=== PATIENT | male | born 1930 | race Caucasian/White ===

== ENCOUNTER → 2017-02-03 | Outpatient (CLI) | payer MEDICARE ==
[~2017-02-03] MED LIST: ATOR20TA PO; FINA5TAB4 PO; HYDR25TA6 PO; METO50TA82 PO; REGADENOSON 0.4 MG/5 ML SYRINGE ONE; WARF7.5T PO
== END | disposition home or self-care (01) ==
LOC: CFH 07:41
PROVIDERS: ATTEND Internal Medicine Cardiovascular Disease
DX: I10 Essential (primary) hypertension (principal); R01.1 Cardiac murmur, unspecified; R07.9 Chest pain, unspecified
CPT/HCPCS: 78452; 93017; 93306; A9502; J2785

== ENCOUNTER → 2018-01-28 | Outpatient (CLI) | payer MEDICARE ==
[~2018-01-28] MED LIST changes: -REGADENOSON 0.4 MG/5 ML SYRINGE ONE
== END | disposition home or self-care (01) ==
LOC: CFH 08:07
PROVIDERS: ATTEND Internal Medicine Cardiovascular Disease
DX: I25.10 Atherosclerotic heart disease of native coronary artery without angina pectoris (principal); I10 Essential (primary) hypertension; R00.1 Bradycardia, unspecified
CPT/HCPCS: 78452; 93017; A9502

== ENCOUNTER 2019-02-14 07:59 | Outpatient (CLI) | payer MEDICARE | END 2019-02-14 23:59 | disposition home or self-care (01) | LOC: WOUND 07:59 | PROVIDERS: ATTEND Internal Medicine Infectious Disease | DX: L97.212 Non-pressure chronic ulcer of right calf with fat layer exposed (principal); C91.11 Chronic lymphocytic leukemia of B-cell type in remission; E21.3 Hyperparathyroidism, unspecified; I82.5Z1 Chronic embolism and thrombosis of unspecified deep veins of right distal lower extremity; E78.5 Hyperlipidemia, unspecified; I25.10 Atherosclerotic heart disease of native coronary artery without angina pectoris; Z87.891 Personal history of nicotine dependence; Z90.49 Acquired absence of other specified parts of digestive tract | CPT/HCPCS: 87070; 87205; G0463 ==

== ENCOUNTER 2019-02-21 09:06 | Outpatient (CLI) | payer MEDICARE | END 2019-02-21 23:59 | disposition home or self-care (01) | LOC: WOUND 09:06 | PROVIDERS: ATTEND Nurse Practitioner Family | DX: L97.212 Non-pressure chronic ulcer of right calf with fat layer exposed (principal); L03.115 Cellulitis of right lower limb; R60.0 Localized edema; E21.3 Hyperparathyroidism, unspecified; I12.9 Hypertensive chronic kidney disease with stage 1 through stage 4 chronic kidney disease, or unspecified chronic kidney disease; N18.9 Chronic kidney disease, unspecified; I82.5Z1 Chronic embolism and thrombosis of unspecified deep veins of right distal lower extremity; E78.5 Hyperlipidemia, unspecified; I25.10 Atherosclerotic heart disease of native coronary artery without angina pectoris; Z87.891 Personal history of nicotine dependence; Z90.49 Acquired absence of other specified parts of digestive tract | CPT/HCPCS: 97597 ==

== ENCOUNTER 2019-02-28 08:49 | Outpatient (CLI) | payer MEDICARE | END 2019-02-28 23:59 | disposition home or self-care (01) | LOC: WOUND 08:49 | PROVIDERS: ATTEND Nurse Practitioner Family | DX: L97.212 Non-pressure chronic ulcer of right calf with fat layer exposed (principal); R60.0 Localized edema; E21.3 Hyperparathyroidism, unspecified; I12.9 Hypertensive chronic kidney disease with stage 1 through stage 4 chronic kidney disease, or unspecified chronic kidney disease; N18.9 Chronic kidney disease, unspecified; E78.5 Hyperlipidemia, unspecified; I25.10 Atherosclerotic heart disease of native coronary artery without angina pectoris; Z87.891 Personal history of nicotine dependence; Z90.49 Acquired absence of other specified parts of digestive tract | CPT/HCPCS: G0463 ==

== ENCOUNTER 2019-04-25 06:47 | Inpatient (IN) | payer MEDICARE ==
[~2019-04-25] VITALS: Ht 190.5 cm; Wt 95.5 kg
--- NOTE | 2019-04-25 07:09 | NUR ---
PT HERE TODAY FOR RLQ PAIN THAT STARTED LAST WEEK AND GOT WORSE LAST NIGHT AND THIS MORNING. DENIES N/V. DENIES SOB. DENIES CP. STATES HE WAS CONSTIPATED EARLIER THIS WEEK AND TOOK METAMUCIL AND FIXED THAT PROBLEM. PT STATES PAIN IS CURRENTLY 08/21. NADCeline. QUITAS. SPOUSE AT BEDSIDE. AMBULATED TO BATHROOM WITH STEADY GAIT TO PROVIDE URINE SAMPLE.
[2019-04-25] MEDS ORDERED: LATA2.5D3 EACHEYE (07:12)
--- NOTE | 2019-04-25 07:19 | NUR ---
PT NOW RESTING ON GURFARNAZ. NADN. VSS. PROVIDED WITH A WARM BLANKET. PA AT BEDSIDE ASSESSING PT NOW.
--- NOTE | 2019-04-25 07:50 | NUR ---
PIV STARTED. BLOOD DRAWN. PT RESTING ON GURNEY. PROVIDED WITH ANOTHER BLANKET. DENIES FURTHER NEEDS. NADN. JOYCE.
[2019-04-25 07:51] LABS: MICROSCOPIC INDICATED
[2019-04-25 07:58] LABS: CULTURE INDICATED? NO
[2019-04-25 08:06] LABS: ALBUMIN 3.6 g/dL (3.4-5.0); ANION GAP 7 mmol/L (5-15); CALCIUM 8.5 mg/dL (8.5-10.1); CHLORIDE 108 mmol/L (98-107)
[2019-04-25 08:12] LABS: INTERNATIONAL NORMALIZED RATIO 2.81 (0.93-1.1); PROTHROMBIN TIME 28.4 Seconds (9.6-11.5)
[2019-04-25 08:16] LABS: ALANINE AMINOTRANSFERASE 21 U/L (12-78); ALKALINE PHOSPHATASE 70 U/L (45-117); BILIRUBIN,TOTAL 1.5 mg/dL (0.2-1.0); CREATININE 2.81 mg/dL (0.7-1.3); TOTAL PROTEIN 6.9 g/dL (6.4-8.2)
[2019-04-25 08:31] LABS: BASOPHILS # (AUTO) 0.04 x10^3/uL (0-0.1); BASOPHILS % (AUTO) 1 % (0-1); EOSINOPHILS # (AUTO) 0.45 x10^3/uL (0-0.4); EOSINOPHILS % (AUTO) 7 % (1-7); LYMPHOCYTES # (AUTO) 2.88 x10^3/uL (1-3.4); LYMPHOCYTES % (AUTO) 46 % (22-44); MD SCAN; MEAN CORPUSCULAR HEMOGLOBIN 33.9 pg (27.5-34.5); MEAN CORPUSCULAR HGB CONC 34.2 g/dL (33.2-36.2); MEAN CORPUSCULAR VOLUME 99.1 fL (81-97); MEAN PLATELET VOLUME 9.7 fL (7.4-10.4); MONOCYTES # (AUTO) 0.22 x10^3/uL (0.2-0.8); MONOCYTES % (AUTO) 4 % (2-9); NEUTROPHILS % (AUTO) 43 % (42-75); PLATELET COUNT 67 x10^3/uL (130-400); RED BLOOD COUNT 4.15 x10^6/uL (4.38-5.82); RED CELL DISTRIBUTION WIDTH 13.7 % (9.4-14.8)
--- NOTE | 2019-04-25 08:43 | NUR ---
PT TO CT NOW.
--- NOTE | 2019-04-25 08:57 | NUR ---
TASK RN: PT BACK FROM CT. RESTING ON SALVADOR. NADN. JOYCE.
--- NOTE | 2019-04-25 09:19 | NUR ---
AT BEDSIDE ASSESSING PT NOW. PT RESTING ON GURNEY. NADN. JOYCE.
--- NOTE | 2019-04-25 09:57 | NUR ---
PT RESTING ON SALVADOR. NIGEL. VSS. DENIES NEEDS.
--- NOTE | 2019-04-25 10:07 | NUR ---
DR. WICK AT BEDSIDE ASSESSING PT NOW.
--- NOTE | 2019-04-25 10:21 | NUR ---
PT BLADDER SCANNED PER MD ORDER NOW. 67ML IN BLADDER. PT RESTING ON GURNEY. NADN. VSS. DENIES NEEDS. AWARE OF POC RE: ADMISSION.
--- NOTE | 2019-04-25 10:43 | NUR ---
PT PROVIDED WITH FOOD AND WATER AT THIS TIME. RESTING ON GURNEY. NADN. VSS. DENIES FURTHER NEEDS.
[2019-04-25] MEDS ORDERED: SODIUM CHLORIDE FLUSH 10ML SYR IVF PRN (11:00)
--- NOTE | 2019-04-25 11:23 | NUR ---
REPORT GIVEN TO FIGUEROA HARRIS.
[2019-04-25 12:00] VITALS: BP 143/88
[2019-04-25] MEDS ORDERED: LABETALOL 5 MG/ML SYR. (IV ONLY) IVPush PRN (14:00)
[2019-04-25] MEDS ORDERED: ONDANSETRON ODT 4 MG PO PRN (14:00)
[2019-04-25] MEDS: SODIUM CHLORIDE 0.9% 1,000 ML IV SCH (15:44)
[2019-04-25] MEDS ORDERED: WARFARIN 5 MG TABLET PO-COUM ONE (18:00)
[2019-04-25 19:50] VITALS: BP 134/85
[2019-04-25] MEDS: ATORVASTATIN 20 MG TABLET PO SCH (20:30)
[2019-04-25] MEDS: LATANOPROST OPHTH 0.005%, 2.5ML EACHEYE SCH (20:31)
[2019-04-26 01:25] VITALS: BP 114/76
[2019-04-26] MEDS: SODIUM CHLORIDE 0.9% 1,000 ML IV SCH ×3 (01:28→20:31)
[2019-04-26 05:05] LABS: INTERNATIONAL NORMALIZED RATIO 2.49 (0.93-1.1); PROTHROMBIN TIME 25.2 Seconds (9.6-11.5)
[2019-04-26 05:09] LABS: ALBUMIN 3.1 g/dL (3.4-5.0); ANION GAP 6 mmol/L (5-15); CHLORIDE 112 mmol/L (98-107)
[2019-04-26 05:13] LABS: ALANINE AMINOTRANSFERASE 17 U/L (12-78); ALKALINE PHOSPHATASE 62 U/L (45-117); BILIRUBIN,TOTAL 1.7 mg/dL (0.2-1.0); CREATININE 2.58 mg/dL (0.7-1.3); TOTAL PROTEIN 5.9 g/dL (6.4-8.2)
[2019-04-26 05:15] LABS: MEAN CORPUSCULAR HEMOGLOBIN 33.3 pg (27.5-34.5); MEAN CORPUSCULAR HGB CONC 33.5 g/dL (33.2-36.2); MEAN CORPUSCULAR VOLUME 99.3 fL (81-97); RED BLOOD COUNT 3.84 x10^6/uL (4.38-5.82); RED CELL DISTRIBUTION WIDTH 13.2 % (9.4-14.8)
[2019-04-26 05:22] LABS: HEMOGLOBIN A1C 5.8 % (4.2-6.3)
[2019-04-26 05:47] LABS: MD YES
[2019-04-26 06:09] LABS: MEAN PLATELET VOLUME 9.7 fL (7.4-10.4); PLATELET COUNT 64 x10^3/uL (130-400)
[2019-04-26 06:10] LABS: EOS#(MANUAL) 0.34 x10^3/uL (0.0-0.4); EOS% (MANUAL) 6 % (1-7); LYMPH#(MANUAL) 2.69 x10^3/uL (1-3.4); LYMPHS% (MANUAL) 48 % (22-44); MONOS#(MANUAL) 0.28 x10^3/uL (0.3-2.7); MONOS% (MANUAL) 5 % (2-9); SEGS% (MANUAL) 41 % (42-75)
[2019-04-26 06:11] LABS: <PLATELET ESTIMATE> DECREASED; <PLT MORPHOLOGY> NORMAL PLT MORPH; <RBC MORPHOLOGY> NORMAL; SMUDGE CELLS 1+
[2019-04-26 07:42] VITALS: BP 117/77
[2019-04-26] MEDS: FINASTERIDE 5 MG TABLET PO SCH (08:45)
[2019-04-26] MEDS: METOPROLOL TARTRATE 50 MG TABLET PO SCH (08:46)
[2019-04-26 14:35] VITALS: BP 124/74
[2019-04-26] MEDS ORDERED: WARFARIN 5 MG TABLET PO-COUM ONE (18:00)
[2019-04-26 19:29] VITALS: BP 132/73
[2019-04-26] MEDS: ATORVASTATIN 20 MG TABLET PO SCH (20:26)
[2019-04-26] MEDS: LATANOPROST OPHTH 0.005%, 2.5ML EACHEYE SCH (20:26)
[2019-04-27 00:50] VITALS: BP 125/68
[2019-04-27 05:23] LABS: INTERNATIONAL NORMALIZED RATIO 2.69 (0.93-1.1); PROTHROMBIN TIME 27.2 Seconds (9.6-11.5)
[2019-04-27 05:32] LABS: ALBUMIN 2.9 g/dL (3.4-5.0); ANION GAP 8 mmol/L (5-15); CALCIUM 7.7 mg/dL (8.5-10.1); CHLORIDE 115 mmol/L (98-107)
[2019-04-27 05:35] LABS: ALANINE AMINOTRANSFERASE 14 U/L (12-78); ALKALINE PHOSPHATASE 56 U/L (45-117); CREATININE 2.76 mg/dL (0.7-1.3); TOTAL PROTEIN 5.7 g/dL (6.4-8.2)
[2019-04-27] MEDS: SODIUM CHLORIDE 0.9% 1,000 ML IV SCH ×2 (06:17→17:34)
[2019-04-27 08:29] VITALS: BP 122/70
[2019-04-27] MEDS: FINASTERIDE 5 MG TABLET PO SCH (10:06)
[2019-04-27] MEDS: METOPROLOL TARTRATE 50 MG TABLET PO SCH (10:06)
[2019-04-27] MEDS: TAMSULOSIN 0.4 MG CAP.ER.24H PO SCH (11:59)
[2019-04-27 14:38] VITALS: BP 128/72
[2019-04-27] MEDS ORDERED: WARFARIN 5 MG TABLET PO-COUM SCH (18:00)
[2019-04-27 19:33] VITALS: BP 109/71
[2019-04-27] MEDS: ATORVASTATIN 20 MG TABLET PO SCH (20:01)
[2019-04-27] MEDS: LATANOPROST OPHTH 0.005%, 2.5ML EACHEYE SCH (20:01)
[2019-04-28 02:07] VITALS: BP 121/68
[2019-04-28] MEDS: SODIUM CHLORIDE 0.9% 1,000 ML IV SCH (03:32)
[2019-04-28 05:58] LABS: MEAN CORPUSCULAR HEMOGLOBIN 33.5 pg (27.5-34.5); MEAN CORPUSCULAR HGB CONC 33.4 g/dL (33.2-36.2); MEAN CORPUSCULAR VOLUME 100.4 fL (81-97); RED BLOOD COUNT 3.58 x10^6/uL (4.38-5.82); RED CELL DISTRIBUTION WIDTH 13.8 % (9.4-14.8)
[2019-04-28 06:01] LABS: INTERNATIONAL NORMALIZED RATIO 2.47 (0.93-1.1)
[2019-04-28 06:07] LABS: ANION GAP 8 mmol/L (5-15); CALCIUM 7.6 mg/dL (8.5-10.1); CHLORIDE 118 mmol/L (98-107); CREATININE 2.34 mg/dL (0.7-1.3)
[2019-04-28 06:16] LABS: BASOPHILS # (AUTO) 0.02 x10^3/uL (0-0.1); BASOPHILS % (AUTO) 0 % (0-1); EOSINOPHILS % (AUTO) 6 % (1-7); LYMPHOCYTES # (AUTO) 2.26 x10^3/uL (1-3.4); LYMPHOCYTES % (AUTO) 46 % (22-44); MD SCAN; MEAN PLATELET VOLUME 9.4 fL (7.4-10.4); MONOCYTES # (AUTO) 0.18 x10^3/uL (0.2-0.8); MONOCYTES % (AUTO) 4 % (2-9); NEUTROPHILS # (AUTO) 2.15 x10^3/uL (1.8-6.8); NEUTROPHILS % (AUTO) 44 % (42-75); PLATELET COUNT 51 x10^3/uL (130-400)
[2019-04-28 07:18] VITALS: BP 136/79
[2019-04-28] MEDS: FINASTERIDE 5 MG TABLET PO SCH (08:59)
[2019-04-28] MEDS: TAMSULOSIN 0.4 MG CAP.ER.24H PO SCH (09:00)
[2019-04-28] MEDS: METOPROLOL TARTRATE 50 MG TABLET PO SCH (09:00)
[2019-04-28 12:50] VITALS: BP 133/82
[2019-04-28] MEDS ORDERED: FLU VACC QS2019-20 36MOS UP/PF 0.5 ML IM-VACC ONE (15:00)
[2019-04-28] MEDS ORDERED: WARFARIN 5 MG TABLET PO-COUM SCH (18:00)
== END 2019-04-28 15:18 | disposition home or self-care (01) | DRG 300 ==
LOC: ED 08:02 → EDIP 10:35 → 3N 11:42 → DCLOUNGE 04-28 15:12
PROVIDERS: ADMIT Internal Medicine; ATTEND Internal Medicine
PROC: 0T9B70Z Drainage of Bladder with Drainage Device, Via Natural or Artificial Opening (ICD-10-PCS; principal; 2019-04-25)
DX: I82.890 Acute embolism and thrombosis of other specified veins (principal); K76.6 Portal hypertension; K86.9 Disease of pancreas, unspecified; I12.9 Hypertensive chronic kidney disease with stage 1 through stage 4 chronic kidney disease, or unspecified chronic kidney disease; N18.3 Chronic kidney disease, stage 3 (moderate); D69.6 Thrombocytopenia, unspecified; E78.00 Pure hypercholesterolemia, unspecified; K59.00 Constipation, unspecified; N40.0 Benign prostatic hyperplasia without lower urinary tract symptoms; R79.1 Abnormal coagulation profile; T50.905A Adverse effect of unspecified drugs, medicaments and biological substances, initial encounter; Y92.89 Other specified places as the place of occurrence of the external cause; Z79.01 Long term (current) use of anticoagulants; Z85.6 Personal history of leukemia; Z87.891 Personal history of nicotine dependence; Z90.49 Acquired absence of other specified parts of digestive tract; Z86.718 Personal history of other venous thrombosis and embolism; I86.8 Varicose veins of other specified sites
CPT/HCPCS: 36415; 74176; 80048; 80053; 81001; 83036; 83690; 85025; 85610; 85730; 86301; 99285; G0378; J7030

== ENCOUNTER 2019-05-18 09:03 | Outpatient (CLI) | payer MEDICARE ==
[~2019-05-18 09:03] MED LIST changes: +LATA2.5D3 EACHEYE
[2019-05-18] MEDS ORDERED: METO25TA35 PO (09:30)
== END 2019-05-18 23:59 | disposition home or self-care (01) ==
LOC: STAR 09:03
PROVIDERS: ATTEND Internal Medicine
DX: Z01.818 Encounter for other preprocedural examination (principal); K86.89 Other specified diseases of pancreas; I44.7 Left bundle-branch block, unspecified
CPT/HCPCS: 93005

== ENCOUNTER 2019-05-23 10:29 | Inpatient (IN) | payer MEDICARE ==
[~2019-05-23] VITALS: Ht 190.5 cm; Wt 97.0 kg
[~2019-05-23 10:29] MED LIST changes: +METO25TA35 PO
[2019-05-23] MEDS ORDERED: SODIUM CHLORIDE 0.9% 1,000 ML IV SCH (10:55)
[2019-05-23] MEDS ORDERED: ASPI-496 PO (10:58)
[2019-05-23 11:23] LABS: INTERNATIONAL NORMALIZED RATIO 1.2 (0.93-1.1); PROTHROMBIN TIME 12.5 Seconds (9.6-11.5)
[2019-05-23] MEDS ORDERED: PROPOFOL 10 MG/ML, 20ML ONE (14:00)
[2019-05-23] MEDS ORDERED: PIPERACILLIN/TAZO/PMX 3.375GM 50 ML ONE (14:44)
[2019-05-23] MEDS ORDERED: ONDANSETRON 2MG/ML, 2ML ONE (14:55)
[2019-05-23] MEDS ORDERED: PIPERACILLIN/TAZO/PMX 3.375GM 50 ML IV ONE (15:00)
[2019-05-23] MEDS ORDERED: ONDANSETRON 2MG/ML, 2ML IVPush ONE (15:00)
[2019-05-23] MEDS ORDERED: PIPERACILLIN/TAZO/PMX 3.375GM 50 ML IV SCH (17:00)
[2019-05-23] MEDS ORDERED: ONDANSETRON 2MG/ML, 2ML IVPush PRN (17:00)
[2019-05-23 17:53] LABS: ALANINE AMINOTRANSFERASE 17 U/L (12-78); ALBUMIN 3.8 g/dL (3.4-5.0); ANION GAP 8 mmol/L (5-15); CALCIUM 8.6 mg/dL (8.5-10.1); CHLORIDE 109 mmol/L (98-107); CREATININE 2.07 mg/dL (0.7-1.3)
[2019-05-23 17:55] LABS: ALKALINE PHOSPHATASE 76 U/L (45-117); BILIRUBIN,TOTAL 2.3 mg/dL (0.2-1.0)
[2019-05-23] MEDS: morphine SULFATE 10 MG/ML, 1ML IVPush PRN ×2 (18:08→18:39)
[2019-05-23] MEDS: LACTATED RINGERS 1,000 ML IV SCH (18:27)
[2019-05-23 18:50] LABS: MEAN CORPUSCULAR HEMOGLOBIN 33.9 pg (27.5-34.5); MEAN CORPUSCULAR HGB CONC 33.5 g/dL (33.2-36.2); MEAN CORPUSCULAR VOLUME 101.2 fL (81-97); RED BLOOD COUNT 4.26 x10^6/uL (4.38-5.82); RED CELL DISTRIBUTION WIDTH 13.7 % (9.4-14.8)
[2019-05-23 19:00] VITALS: BP 122/72
[2019-05-23 19:58] LABS: MEAN PLATELET VOLUME 10.4 fL (7.4-10.4); PLATELET COUNT 91 x10^3/uL (130-400)
[2019-05-23 19:59] LABS: MD YES
[2019-05-23 20:08] LABS: EOS#(MANUAL) 0.34 x10^3/uL (0.0-0.4); EOS% (MANUAL) 3 % (1-7); LYMPH#(MANUAL) 7.73 x10^3/uL (1-3.4); LYMPHS% (MANUAL) 69 % (22-44); MONOS#(MANUAL) 0.22 x10^3/uL (0.3-2.7); MONOS% (MANUAL) 2 % (2-9); SEG#(MANUAL) 2.91 x10^3/uL (1.8-6.8); SEGS% (MANUAL) 26 % (42-75)
[2019-05-23 20:13] LABS: <PLATELET ESTIMATE> DECREASED; <PLT MORPHOLOGY> NORMAL PLT MORPH; OVALOCYTES 1+; TEAR DROPS 1+
[2019-05-23 20:15] LABS: SMUDGE CELLS 1+
[2019-05-23] MEDS: ATORVASTATIN 20 MG TABLET PO SCH (21:00)
[2019-05-23] MEDS: LATANOPROST OPHTH 0.005%, 2.5ML EACHEYE SCH (21:00)
[2019-05-23] MEDS: PIPERACILLIN/TAZO/PMX 3.375GM 50 ML IV SCH (21:32)
[2019-05-24 01:32] VITALS: BP 113/68
[2019-05-24] MEDS: PIPERACILLIN/TAZO/PMX 3.375GM 50 ML IV SCH ×4 (03:29→21:32)
[2019-05-24] MEDS: LACTATED RINGERS 1,000 ML IV SCH (03:29)
[2019-05-24 05:36] LABS: MEAN CORPUSCULAR HEMOGLOBIN 33.9 pg (27.5-34.5); MEAN CORPUSCULAR HGB CONC 33.6 g/dL (33.2-36.2); MEAN CORPUSCULAR VOLUME 100.8 fL (81-97); MEAN PLATELET VOLUME 9.6 fL (7.4-10.4); PLATELET COUNT 73 x10^3/uL (130-400); RED BLOOD COUNT 4.01 x10^6/uL (4.38-5.82); RED CELL DISTRIBUTION WIDTH 14.2 % (9.4-14.8)
[2019-05-24 05:42] LABS: ANION GAP 9 mmol/L (5-15); CALCIUM 8.1 mg/dL (8.5-10.1); CHLORIDE 110 mmol/L (98-107); CREATININE 1.94 mg/dL (0.7-1.3)
[2019-05-24 05:57] LABS: MD YES
[2019-05-24 05:59] LABS: BANDS%(MANUAL) 1 % (0-7); LYMPH#(MANUAL) 4.46 x10^3/uL (1-3.4); LYMPHS% (MANUAL) 45 % (22-44); MONOS% (MANUAL) 4 % (2-9); SEG#(MANUAL) 4.95 x10^3/uL (1.8-6.8); SEGS% (MANUAL) 50 % (42-75)
[2019-05-24 06:00] LABS: <PLATELET ESTIMATE> DECREASED; <PLT MORPHOLOGY> NORMAL PLT MORPH; OVALOCYTES 1+
[2019-05-24 06:01] LABS: SMUDGE CELLS 1+
[2019-05-24 07:38] VITALS: BP 106/65
[2019-05-24] MEDS: PANTOPRAZOLE 40 MG IV IVPush SCH (08:25)
[2019-05-24] MEDS: HYDROCHLOROTHIAZIDE 25 MG TABLET PO SCH (08:50)
[2019-05-24] MEDS: METOPROLOL TARTRATE 25 MG TABLET PO SCH (08:50)
[2019-05-24] MEDS: FINASTERIDE 5 MG TABLET PO SCH (08:52)
[2019-05-24] MEDS ORDERED: POTASSIUM CHLORIDE 40 MEQ in SODIUM CHLORIDE 0.9% 500 ML IV ONE (09:30)
[2019-05-24] MEDS ORDERED: hydrALAzine 20 MG/ML, 1ML IV PRN (12:00)
[2019-05-24] MEDS: D5%-LACTATED RINGERS 1,000 ML IV SCH (12:21)
[2019-05-24 13:27] VITALS: BP 105/65
[2019-05-24 19:38] VITALS: BP 118/72
[2019-05-24] MEDS: ATORVASTATIN 20 MG TABLET PO SCH ×2 (21:00→21:32)
[2019-05-24] MEDS: LATANOPROST OPHTH 0.005%, 2.5ML EACHEYE SCH (21:00)
[2019-05-25 00:36] VITALS: BP 107/62
[2019-05-25] MEDS: D5%-LACTATED RINGERS 1,000 ML IV SCH ×2 (03:12→20:07)
[2019-05-25] MEDS: PIPERACILLIN/TAZO/PMX 3.375GM 50 ML IV SCH ×3 (03:12→16:12)
[2019-05-25 05:02] LABS: MEAN CORPUSCULAR HEMOGLOBIN 34.1 pg (27.5-34.5); MEAN CORPUSCULAR HGB CONC 33.5 g/dL (33.2-36.2); MEAN CORPUSCULAR VOLUME 101.8 fL (81-97); MEAN PLATELET VOLUME 9.5 fL (7.4-10.4); PLATELET COUNT 59 x10^3/uL (130-400); RED BLOOD COUNT 3.41 x10^6/uL (4.38-5.82); RED CELL DISTRIBUTION WIDTH 14.2 % (9.4-14.8)
[2019-05-25 05:08] LABS: ALANINE AMINOTRANSFERASE 47 U/L (12-78); ALBUMIN 2.9 g/dL (3.4-5.0); ANION GAP 7 mmol/L (5-15); CHLORIDE 113 mmol/L (98-107); CREATININE 1.97 mg/dL (0.7-1.3)
[2019-05-25 05:11] LABS: ALKALINE PHOSPHATASE 61 U/L (45-117); BILIRUBIN,TOTAL 3.5 mg/dL (0.2-1.0); TOTAL PROTEIN 5.9 g/dL (6.4-8.2)
[2019-05-25 05:53] LABS: BASOPHILS # (AUTO) 0.02 x10^3/uL (0-0.1); BASOPHILS % (AUTO) 0 % (0-1); EOSINOPHILS # (AUTO) 0.12 x10^3/uL (0-0.4); EOSINOPHILS % (AUTO) 2 % (1-7); LYMPHOCYTES # (AUTO) 2.74 x10^3/uL (1-3.4); LYMPHOCYTES % (AUTO) 47 % (22-44); MD SCAN; MONOCYTES # (AUTO) 0.15 x10^3/uL (0.2-0.8); MONOCYTES % (AUTO) 3 % (2-9); NEUTROPHILS # (AUTO) 2.82 x10^3/uL (1.8-6.8); NEUTROPHILS % (AUTO) 48 % (42-75)
[2019-05-25 07:54] VITALS: BP 120/63
[2019-05-25] MEDS: FINASTERIDE 5 MG TABLET PO SCH (08:27)
[2019-05-25] MEDS: HYDROCHLOROTHIAZIDE 25 MG TABLET PO SCH (08:27)
[2019-05-25] MEDS: PANTOPRAZOLE 40 MG IV IVPush SCH (08:27)
[2019-05-25] MEDS: METOPROLOL TARTRATE 25 MG TABLET PO SCH (08:27)
[2019-05-25] MEDS ORDERED: POTASSIUM CHLORIDE 40 MEQ in SODIUM CHLORIDE 0.9% 500 ML IV ONE (10:00)
[2019-05-25 14:50] VITALS: BP 104/65
[2019-05-25 19:20] VITALS: BP 103/62
[2019-05-25] MEDS: LATANOPROST OPHTH 0.005%, 2.5ML EACHEYE SCH (20:07)
[2019-05-25] MEDS: ATORVASTATIN 20 MG TABLET PO SCH (20:07)
[2019-05-26 00:56] VITALS: BP 108/63
[2019-05-26 05:28] LABS: MEAN CORPUSCULAR HEMOGLOBIN 34.3 pg (27.5-34.5); MEAN CORPUSCULAR HGB CONC 33.6 g/dL (33.2-36.2); MEAN CORPUSCULAR VOLUME 102.1 fL (81-97); MEAN PLATELET VOLUME 10.3 fL (7.4-10.4); PLATELET COUNT 54 x10^3/uL (130-400); RED BLOOD COUNT 3.25 x10^6/uL (4.38-5.82); RED CELL DISTRIBUTION WIDTH 14.1 % (9.4-14.8)
[2019-05-26 05:35] LABS: ALBUMIN 2.7 g/dL (3.4-5.0); ANION GAP 5 mmol/L (5-15); CHLORIDE 117 mmol/L (98-107)
[2019-05-26 05:38] LABS: ALANINE AMINOTRANSFERASE 34 U/L (12-78); ALKALINE PHOSPHATASE 55 U/L (45-117); TOTAL PROTEIN 5.7 g/dL (6.4-8.2)
[2019-05-26] MEDS: D5%-LACTATED RINGERS 1,000 ML IV SCH (06:06)
[2019-05-26 06:10] LABS: BASOPHILS # (AUTO) 0.02 x10^3/uL (0-0.1); BASOPHILS % (AUTO) 0 % (0-1); EOSINOPHILS # (AUTO) 0.22 x10^3/uL (0-0.4); EOSINOPHILS % (AUTO) 4 % (1-7); LYMPHOCYTES # (AUTO) 2.73 x10^3/uL (1-3.4); LYMPHOCYTES % (AUTO) 51 % (22-44); MD SCAN; MONOCYTES # (AUTO) 0.13 x10^3/uL (0.2-0.8); MONOCYTES % (AUTO) 2 % (2-9); NEUTROPHILS # (AUTO) 2.24 x10^3/uL (1.8-6.8); NEUTROPHILS % (AUTO) 42 % (42-75)
[2019-05-26 08:07] VITALS: BP 111/68
[2019-05-26] MEDS: HYDROCHLOROTHIAZIDE 25 MG TABLET PO SCH (08:56)
[2019-05-26] MEDS: METOPROLOL TARTRATE 25 MG TABLET PO SCH (08:58)
[2019-05-26] MEDS: FINASTERIDE 5 MG TABLET PO SCH (10:45)
[2019-05-26] MEDS ORDERED: BENZ100C PO (12:09)
[2019-05-26 13:09] VITALS: BP 122/62
== END 2019-05-26 15:15 | disposition home or self-care (01) | DRG 919 ==
LOC: OUT 10:29 → 4NE 16:33 → OUT 16:49 → 4NE 16:49 → DCLOUNGE 05-26 15:00
PROVIDERS: ADMIT Family Medicine; ATTEND Internal Medicine
PROC: BD42ZZZ Ultrasonography of Stomach (ICD-10-PCS; 2019-05-23)
PROC: 0DJ08ZZ Inspection of Upper Intestinal Tract, Via Natural or Artificial Opening Endoscopic (ICD-10-PCS; principal; 2019-05-23 12:30)
DX: K91.71 Accidental puncture and laceration of a digestive system organ or structure during a digestive system procedure (principal); K22.3 Perforation of esophagus; K86.9 Disease of pancreas, unspecified; I12.9 Hypertensive chronic kidney disease with stage 1 through stage 4 chronic kidney disease, or unspecified chronic kidney disease; E78.5 Hyperlipidemia, unspecified; Z79.01 Long term (current) use of anticoagulants; Z85.6 Personal history of leukemia; Z86.718 Personal history of other venous thrombosis and embolism; N40.0 Benign prostatic hyperplasia without lower urinary tract symptoms; N18.3 Chronic kidney disease, stage 3 (moderate); I25.10 Atherosclerotic heart disease of native coronary artery without angina pectoris; Y83.8 Other surgical procedures as the cause of abnormal reaction of the patient, or of later complication, without mention of misadventure at the time of the procedure; Y92.234 Operating room of hospital as the place of occurrence of the external cause
CPT/HCPCS: 36415; 71045; 74220; 80048; 80053; 83735; 84100; 85025; 85610; G0378; J2405; J2543; J2704; J3480; C9113; J2270; J7030; J7040; J7120; J7121

== ENCOUNTER 2019-07-24 06:37 | Emergency (ER) | payer MEDICARE ==
[~2019-07-24] VITALS: Ht 190.5 cm; Wt 91.5 kg
[~2019-07-24 06:37] MED LIST changes: +ASPI-496 PO; +BENZ100C PO
--- NOTE | 2019-07-24 06:56 | NUR ---
89 y/o MALE PRESENTS TO ED WITH C/O WEIGHT GAIN. PER PT "I GOT A PORT PLACED LAST WEDNESDAY AND EVER SINCE THEN I HAVE GAINED WEIGHT. I'VE GAINED 8 LBS SINCE THE PLACEMENT. MY BROTHER IS AN OLD DR, HE SAID I'M NOT GETTING THE FLUIDS OFF BECAUSE MY KIDNEYS. MY BELLY HAS BEEN DISTENDED SINCE WEDNESDAY." PT PLACED ON CONT PULSE OX, NIBP. PT HAS DOCUMENTATION OF WEIGHTS TAKEN SINCE WEDNESDAY. BEDSIDE.
--- NOTE | 2019-07-24 07:29 | NUR ---
piv established. pt tolerated with no complications. nadn. no other needs requested at this time.
[2019-07-24 07:47] LABS: ALBUMIN 2.8 g/dL (3.4-5.0); ANION GAP 12 mmol/L (5-15); CALCIUM 8.8 mg/dL (8.5-10.1); CHLORIDE 103 mmol/L (98-107); INTERNATIONAL NORMALIZED RATIO 1.03 (0.93-1.1); PROTHROMBIN TIME 10.9 Seconds (9.6-11.5)
[2019-07-24 07:52] LABS: ALANINE AMINOTRANSFERASE 80 U/L (12-78); ALKALINE PHOSPHATASE 77 U/L (45-117); BILIRUBIN,TOTAL 1.6 mg/dL (0.2-1.0); CREATININE 1.85 mg/dL (0.7-1.3); TOTAL PROTEIN 6.2 g/dL (6.4-8.2)
[2019-07-24 07:59] LABS: MEAN CORPUSCULAR HGB CONC 33.5 g/dL (33.2-36.2); MEAN CORPUSCULAR VOLUME 98.3 fL (81-97); MEAN PLATELET VOLUME 9.5 fL (7.4-10.4); PLATELET COUNT 91 x10^3/uL (130-400); RED BLOOD COUNT 3.77 x10^6/uL (4.38-5.82); RED CELL DISTRIBUTION WIDTH 14.8 % (9.4-14.8)
[2019-07-24 08:05] LABS: BASOPHILS # (AUTO) 0.01 x10^3/uL (0-0.1); BASOPHILS % (AUTO) 0 % (0-1); EOSINOPHILS # (AUTO) 0.04 x10^3/uL (0-0.4); EOSINOPHILS % (AUTO) 1 % (1-7); LYMPHOCYTES # (AUTO) 1.88 x10^3/uL (1-3.4); LYMPHOCYTES % (AUTO) 28 % (22-44); MD MORPH REVIEW ONLY; MONOCYTES % (AUTO) 3 % (2-9); NEUTROPHILS # (AUTO) 4.57 x10^3/uL (1.8-6.8); NEUTROPHILS % (AUTO) 68 % (42-75)
[2019-07-24 08:06] LABS: ANISOCYTOSIS 1+; OVALOCYTES 1+; POLYCHROMASIA 1+; TEAR DROPS 1+
[2019-07-24 08:08] LABS: <PLATELET ESTIMATE> DECREASED; <PLT MORPHOLOGY> NORMAL PLT MORPH
[2019-07-24] MEDS ORDERED: LIDOCAINE 1%, 10ML ONE (08:27)
--- NOTE | 2019-07-24 08:36 | NUR ---
PT RESTING ON GURNEY. URINAL PROVIDED. PT VERBALIZES UNDERSTANDING OF POC. BEDSIDE. VSS.
[2019-07-24] MEDS ORDERED: SODIUM CHLORIDE 0.9%, 500ML IVBOLUS ONE (09:00)
[2019-07-24] MEDS ORDERED: ALBUMIN HUMAN 5% 500 ML IV ONE (09:00)
--- NOTE | 2019-07-24 09:08 | NUR ---
SPOKE WITH PHARMACY, ABLE TO RUN THE ALBUMIN OVER 1-2 HOURS. PER IR, START ALBUMIN WHEN PROCEDURE IS COMPLETE. IR WILL BE HERE TO GET PATIENT IN "5 MINS" NADN.
--- NOTE | 2019-07-24 09:16 | NUR ---
PT TO IR FOR PROCEDURE
--- NOTE | 2019-07-24 10:08 | NUR ---
PT BACK FROM IR. PT REMINDED REGARDING UA NEEDED. NADN. FAMILY BEDSIDE.
--- NOTE | 2019-07-24 10:55 | NUR ---
PT CONTINUES TO REST ON GURNEY. NADN. PT UNABLE TO URINATE AT THIS TIME. VSS. WILL CONTINUE TO MONITOR.
--- NOTE | 2019-07-24 11:21 | NUR ---
PT AMBULATORY WITH STEADY GAIT TO BATHROOM TO TRY FOR SAMPLE.
--- NOTE | 2019-07-24 11:35 | NUR ---
PT REATTACHED TO ALL MONITORS. UA SENT TO LAB. NADN. NO REQUESTED AT THIS TIME. FAMILIY BEDSIDE
[2019-07-24 11:49] LABS: MICROSCOPIC AUTO
[2019-07-24 11:51] VITALS: BP 118/67
--- NOTE | 2019-07-24 11:51 | NUR ---
PT CONTINUES TO REST ON SALVADOR. NIGEL. BEDSIDE. NO NEEDS REQUESTED AT THIS TIME.
[2019-07-24 11:52] LABS: CULTURE INDICATED? NO
--- NOTE | 2019-07-24 11:55 | NUR ---
BEDSIDE REPORT TO FIGUEROA KILGORE.
--- NOTE | 2019-07-24 13:34 | NUR ---
Patient/Caregiver given discharge instructions and they have confirmed that they understand the instructions. Patient ambulatory with steady gait.
--- NOTE | 2019-07-24 13:48 | NUR ---
PROXY CHART OF IV ALBUMIN AND NS.
== END 2019-07-24 13:50 | disposition home or self-care (01) ==
LOC: ED 09:26
DX: I12.9 Hypertensive chronic kidney disease with stage 1 through stage 4 chronic kidney disease, or unspecified chronic kidney disease (principal); N18.9 Chronic kidney disease, unspecified; E87.6 Hypokalemia; R18.8 Other ascites; E86.9 Volume depletion, unspecified; E87.2 Acidosis; R39.2 Extrarenal uremia; E86.0 Dehydration; C79.9 Secondary malignant neoplasm of unspecified site; Z87.891 Personal history of nicotine dependence; Z86.718 Personal history of other venous thrombosis and embolism
CPT/HCPCS: 36415; 49083; 80053; 81001; 82042; 83615; 83690; 85025; 85610; 85730; 87070; 87205; 88112; 88305; 89051; 96365; 99285; J3490; J7040; P9045

== ENCOUNTER 2019-07-26 16:15 | Emergency (ER) | payer MEDICARE ==
[~2019-07-26] VITALS: Ht 190.5 cm; Wt 90.8 kg
[2019-07-26 16:34] VITALS: BP 139/87
--- NOTE | 2019-07-26 19:22 | NUR ---
JAYLENX1
--- NOTE | 2019-07-26 19:52 | NUR ---
NO ANSWER WHEN PT CALLED FOR REPEAT VITALS @ 1951
--- NOTE | 2019-07-26 20:17 | NUR ---
NO ANSWER WHEN PT CALLED FOR REPEAT VITALS @ 2017.
== END 2019-07-26 20:35 | disposition left against medical advice (07) ==
LOC: ED 20:19
DX: Z53.21 Procedure and treatment not carried out due to patient leaving prior to being seen by health care provider (principal); I44.4 Left anterior fascicular block; I51.7 Cardiomegaly; I21.9 Acute myocardial infarction, unspecified
CPT/HCPCS: 93005

== ENCOUNTER 2019-07-27 06:19 | Emergency (ER) | payer MEDICARE ==
[~2019-07-27] VITALS: Ht 190.5 cm; Wt 90.3 kg
--- NOTE | 2019-07-27 06:56 | NUR ---
REPORT GIVEN TO FIGUEROA BLAKE
--- NOTE | 2019-07-27 07:02 | NUR ---
REPORT RECEIVED FROM [facility]ID AND [facility].
--- NOTE | 2019-07-27 07:11 | NUR ---
PT RESTING ON SALVADOR. NIGEL. VSS. DENIES NEEDS.
[2019-07-27] MEDS ORDERED: LIDOCAINE 1%, 10ML ONE (07:59)
--- NOTE | 2019-07-27 08:02 | NUR ---
PT TO IR NOW.
[2019-07-27 08:06] LABS: ALBUMIN 2.5 g/dL (3.4-5.0); ANION GAP 12 mmol/L (5-15); CALCIUM 8.6 mg/dL (8.5-10.1); CHLORIDE 106 mmol/L (98-107)
[2019-07-27 08:09] LABS: ALANINE AMINOTRANSFERASE 71 U/L (12-78); ALKALINE PHOSPHATASE 76 U/L (45-117); BILIRUBIN,TOTAL 1.2 mg/dL (0.2-1.0); CREATININE 1.95 mg/dL (0.7-1.3); TOTAL PROTEIN 5.4 g/dL (6.4-8.2)
[2019-07-27 08:31] LABS: MD YES; MEAN CORPUSCULAR HEMOGLOBIN 33.1 pg (27.5-34.5); MEAN CORPUSCULAR HGB CONC 33.4 g/dL (33.2-36.2); MEAN CORPUSCULAR VOLUME 98.9 fL (81-97); MEAN PLATELET VOLUME 9.4 fL (7.4-10.4); PLATELET COUNT 87 x10^3/uL (130-400); RED BLOOD COUNT 3.74 x10^6/uL (4.38-5.82); RED CELL DISTRIBUTION WIDTH 14.8 % (9.4-14.8)
[2019-07-27 08:33] LABS: <PLATELET ESTIMATE> DECREASED; <PLT MORPHOLOGY> NORMAL PLT MORPH; ANISOCYTOSIS 1+; BAND#(MANUAL) 0.08 x10^3/uL; BANDS%(MANUAL) 1 % (0-7); LYMPH#(MANUAL) 0.83 x10^3/uL (1-3.4); LYMPHS% (MANUAL) 11 % (22-44); MONOS#(MANUAL) 0.23 x10^3/uL (0.3-2.7); MONOS% (MANUAL) 3 % (2-9); OVALOCYTES 1+; POLYCHROMASIA 1+; SEG#(MANUAL) 6.38 x10^3/uL (1.8-6.8); SEGS% (MANUAL) 85 % (42-75)
--- NOTE | 2019-07-27 08:55 | NUR ---
PT BACK FROM IR. RESTING ON [employer]. VSS. NADN. UP FOR RECHECK. PT AWARE OF POC.
--- NOTE | 2019-07-27 08:59 | NUR ---
MD AT BEDSIDE DISCUSSING POC WITH PT NOW.
[2019-07-27 09:52] VITALS: BP 104/66
== END 2019-07-27 09:59 | disposition home or self-care (01) ==
LOC: ED 09:20
DX: R18.0 Malignant ascites (principal); I12.9 Hypertensive chronic kidney disease with stage 1 through stage 4 chronic kidney disease, or unspecified chronic kidney disease; N18.2 Chronic kidney disease, stage 2 (mild); E78.00 Pure hypercholesterolemia, unspecified; Z87.891 Personal history of nicotine dependence
CPT/HCPCS: 36415; 49083; 80053; 83690; 85025; 99285; J3490

== ENCOUNTER 2019-07-30 12:19 | Inpatient (IN) | payer MEDICARE, OTHER ==
[~2019-07-30] VITALS: Ht 190.5 cm; Wt 88.9 kg
[2019-07-30] MEDS ORDERED: SODIUM CHLORIDE 0.9% 1,000 ML IV ONE (12:47)
--- NOTE | 2019-07-30 12:51 | NUR ---
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 PT HAD ASCITES DRAINED WEDNESDAY AND WEDNESDAY. ABDOMEN DISTENDED CAUSING DIFFICULTY EATING, VOIDING AND HAS HAD DIFFICULTY WITH BM. PT WEAK. MD AT BEDSIDE WITH ULTRASOUND MACHINE
[2019-07-30] MEDS ORDERED: SODIUM CHLORIDE FLUSH 10ML SYR IVF ONE (13:00)
[2019-07-30 13:33] LABS: ALANINE AMINOTRANSFERASE 347 U/L (12-78); ALBUMIN 2.3 g/dL (3.4-5.0); ANION GAP 10 mmol/L (5-15); CALCIUM 8.7 mg/dL (8.5-10.1); CHLORIDE 104 mmol/L (98-107)
[2019-07-30 13:35] LABS: ALKALINE PHOSPHATASE 92 U/L (45-117); BILIRUBIN,TOTAL 1.4 mg/dL (0.2-1.0); TOTAL PROTEIN 5.7 g/dL (6.4-8.2)
[2019-07-30 13:38] LABS: MEAN CORPUSCULAR VOLUME 100.2 fL (81-97); PLATELET COUNT 78 x10^3/uL (130-400); RED BLOOD COUNT 4.08 x10^6/uL (4.38-5.82)
[2019-07-30 13:39] LABS: MD YES
[2019-07-30 13:57] LABS: ANISOCYTOSIS 1+; LYMPHS% (MANUAL) 43 % (22-44); SEGS% (MANUAL) 57 % (42-75)
[2019-07-30 13:58] LABS: <PLATELET ESTIMATE> DECREASED; <PLT MORPHOLOGY> NORMAL PLT MORPH; OVALOCYTES 1+; SMUDGE CELLS 1+; TEAR DROPS 1+
--- NOTE | 2019-07-30 15:02 | NUR ---
AMBULATED ACROSS THE TELLO WITH USE OF WALKER TO ATTEMPT TO HAVE BM. PT STATES PASSED GAS BUT NO BM. IV FLUIDS INFUSING THROUGH ACCESSED PORT. DAUGHTER AT BEDSIDE. AWARE OF INTENTION TO ADMIT
--- NOTE | 2019-07-30 15:15 | NUR ---
REPORT TO SAE MARTI. PT TO BE TRANSPORTED TO FLOOR
--- NOTE | 2019-07-30 15:29 | NUR ---
HOSPITALIST AT BEDSIDE.
[2019-07-30] MEDS ORDERED: METOCLOPRAMIDE 5 MG/ML, 2ML IVPush PRN (16:00)
[2019-07-30] MEDS ORDERED: morphine SULFATE 10 MG/ML, 1ML IVPush PRN (16:00)
[2019-07-30] MEDS ORDERED: POLYETHYLENE GLYCOL 17 GM PACKET PO PRN (16:00)
[2019-07-30] MEDS ORDERED: PROMETHAZINE 25 MG/ML, 1ML IM PRN (16:00)
[2019-07-30] MEDS ORDERED: DOCUSATE 100 MG CAPSULE PO PRN (16:00)
[2019-07-30] MEDS ORDERED: BENZONATATE 100 MG CAPSULE PO PRN (16:00)
[2019-07-30] MEDS ORDERED: ENOXAPARIN 40 MG/0.4 ML SQ SCH (16:00)
[2019-07-30] MEDS ORDERED: LABETALOL 5MG/ML, 20ML IVPush PRN (16:00)
[2019-07-30] MEDS ORDERED: SODIUM CHLORIDE 0.9% 1,000 ML IV SCH (16:00)
[2019-07-30] MEDS ORDERED: OXYcodone IR 5MG TABLET PO PRN (16:00)
[2019-07-30] MEDS ORDERED: BISACODYL 10 MG SUPP PR PRN (16:00)
[2019-07-30] MEDS ORDERED: hydrALAzine 20 MG/ML, 1ML IVPush PRN (16:00)
[2019-07-30] MEDS ORDERED: VANCOMYCIN PER PHARMACY MC PRN (16:00)
[2019-07-30] MEDS: SODIUM CHLORIDE 0.9% 1,000 ML IV SCH (16:03)
[2019-07-30] MEDS ORDERED: PHARMACOKINETIC CONSULTATION MC ONE (16:30)
[2019-07-30] MEDS ORDERED: PHARMACOKINETIC MONITORING MC PRN (16:30)
[2019-07-30 16:37] VITALS: BP 100/59
[2019-07-30 17:06] LABS: INTERNATIONAL NORMALIZED RATIO 1.16 (0.93-1.1); PROTHROMBIN TIME 12.3 Seconds (9.6-11.5)
[2019-07-30 17:44] LABS: MD YES; MEAN CORPUSCULAR HEMOGLOBIN 32.8 pg (27.5-34.5); MEAN CORPUSCULAR HGB CONC 33.3 g/dL (33.2-36.2); MEAN CORPUSCULAR VOLUME 98.6 fL (81-97); MEAN PLATELET VOLUME 9.2 fL (7.4-10.4); PLATELET COUNT 73 x10^3/uL (130-400); RED CELL DISTRIBUTION WIDTH 14.7 % (9.4-14.8)
[2019-07-30 17:46] LABS: BAND#(MANUAL) 0.36 x10^3/uL; BANDS%(MANUAL) 2 % (0-7); LYMPHS% (MANUAL) 37 % (22-44); SEG#(MANUAL) 11.04 x10^3/uL (1.8-6.8); SEGS% (MANUAL) 61 % (42-75)
[2019-07-30 17:47] LABS: ANISOCYTOSIS 1+; OVALOCYTES 1+; SMUDGE CELLS 1+; TEAR DROPS 1+
[2019-07-30 17:48] LABS: <PLATELET ESTIMATE> DECREASED; <PLT MORPHOLOGY> NORMAL PLT MORPH
[2019-07-30] MEDS ORDERED: WARFARIN 2 MG TABLET PO-COUM ONE (18:30)
[2019-07-30] MEDS: PIPERACILLIN/TAZO/PMX 3.375GM 50 ML IV SCH (19:22)
[2019-07-30 19:56] VITALS: BP 94/58
[2019-07-30] MEDS ORDERED: WARFARIN 3 MG TABLET PO-COUM ONE (20:30)
[2019-07-30] MEDS: ATORVASTATIN 20 MG TABLET PO SCH (20:36)
[2019-07-30] MEDS: VANCOMYCIN 1,800 MG in SODIUM CHLORIDE 0.9% 250 ML IV SCH (20:36)
[2019-07-30] MEDS: LATANOPROST OPHTH 0.005%, 2.5ML EACHEYE SCH (21:00)
[2019-07-31 01:03] VITALS: BP 92/58
[2019-07-31] MEDS: PIPERACILLIN/TAZO/PMX 3.375GM 50 ML IV SCH ×4 (01:37→19:47)
[2019-07-31 02:03] LABS: CULTURE INDICATED? YES; MICROSCOPIC INDICATED
[2019-07-31] MEDS: ONDANSETRON ODT 4 MG PO PRN (02:09)
[2019-07-31 04:31] LABS: ALBUMIN 1.9 g/dL (3.4-5.0); ANION GAP 8 mmol/L (5-15); CALCIUM 8.2 mg/dL (8.5-10.1); CHLORIDE 107 mmol/L (98-107)
[2019-07-31 04:35] LABS: ALANINE AMINOTRANSFERASE 238 U/L (12-78); ALKALINE PHOSPHATASE 82 U/L (45-117); BILIRUBIN,TOTAL 1.6 mg/dL (0.2-1.0); CREATININE 2.54 mg/dL (0.7-1.3); TOTAL PROTEIN 5.1 g/dL (6.4-8.2)
[2019-07-31 07:02] VITALS: BP 101/67
[2019-07-31] MEDS: HYDROCHLOROTHIAZIDE 25 MG TABLET PO SCH (07:51)
[2019-07-31] MEDS: ASPIRIN 81 MG TABLET EC PO SCH (07:51)
[2019-07-31] MEDS: METOPROLOL TARTRATE 25 MG TABLET PO SCH (07:51)
[2019-07-31] MEDS: SENNA/DOCUSATE TABLET PO SCH (07:53)
[2019-07-31] MEDS: FINASTERIDE 5 MG TABLET PO SCH (07:55)
[2019-07-31 08:13] LABS: INTERNATIONAL NORMALIZED RATIO 1.3 (0.93-1.1); PROTHROMBIN TIME 13.8 Seconds (9.6-11.5)
--- NOTE | 2019-07-31 09:51 | NUR ---
REC: Reg/thins; no orange sheet indicated Addendum: 07/31/19 at 0952 by Karon EDUARDO Amended: Links added.
[2019-07-31] MEDS ORDERED: LIDOCAINE 1%, 10ML ONE (11:31)
[2019-07-31] MEDS ORDERED: ALBUTEROL HFA INHALER INH PRN (12:00)
[2019-07-31] MEDS: MEGESTROL ACETATE 400 MG/10 ML ML PO SCH (12:27)
[2019-07-31] MEDS: SODIUM CHLORIDE 0.9% 1,000 ML IV SCH (12:30)
[2019-07-31 14:01] VITALS: BP 90/46
[2019-07-31] MEDS ORDERED: METOCLOPRAMIDE 5 MG/ML, 2ML IVPush PRN (17:30)
[2019-07-31] MEDS ORDERED: WARFARIN 2 MG TABLET PO-COUM ONE (18:00)
[2019-07-31] MEDS ORDERED: WARFARIN 3 MG TABLET PO-COUM ONE (18:08)
[2019-07-31 19:01] VITALS: BP 95/56
[2019-07-31] MEDS: LATANOPROST OPHTH 0.005%, 2.5ML EACHEYE SCH (19:45)
[2019-07-31] MEDS: ATORVASTATIN 20 MG TABLET PO SCH (19:47)
[2019-07-31] MEDS ORDERED: LOSARTAN 25MG TABLET PO SCH (21:00)
[2019-08-01 01:25] VITALS: BP 90/51
[2019-08-01] MEDS: PIPERACILLIN/TAZO/PMX 3.375GM 50 ML IV SCH ×4 (01:32→19:16)
[2019-08-01] MEDS: SODIUM CHLORIDE 0.9% 1,000 ML IV SCH ×2 (03:05→17:46)
[2019-08-01 03:18] LABS: MEAN CORPUSCULAR HEMOGLOBIN 33.2 pg (27.5-34.5); MEAN CORPUSCULAR HGB CONC 33.9 g/dL (33.2-36.2); MEAN CORPUSCULAR VOLUME 98.2 fL (81-97); MEAN PLATELET VOLUME 9.1 fL (7.4-10.4); PLATELET COUNT 56 x10^3/uL (130-400); RED BLOOD COUNT 3.09 x10^6/uL (4.38-5.82)
[2019-08-01 03:20] LABS: INTERNATIONAL NORMALIZED RATIO 1.7 (0.93-1.1); PROTHROMBIN TIME 18.1 Seconds (9.6-11.5)
[2019-08-01 03:23] LABS: ALANINE AMINOTRANSFERASE 134 U/L (12-78); ALBUMIN 1.7 g/dL (3.4-5.0); ANION GAP 10 mmol/L (5-15); CALCIUM 7.6 mg/dL (8.5-10.1); CHLORIDE 109 mmol/L (98-107); CREATININE 2.43 mg/dL (0.7-1.3)
[2019-08-01 03:25] LABS: ALKALINE PHOSPHATASE 77 U/L (45-117); BILIRUBIN,TOTAL 0.7 mg/dL (0.2-1.0); TOTAL PROTEIN 4.7 g/dL (6.4-8.2)
[2019-08-01 04:14] LABS: BASOPHILS # (AUTO) 0.01 x10^3/uL (0-0.1); BASOPHILS % (AUTO) 0 % (0-1); EOSINOPHILS # (AUTO) 0.08 x10^3/uL (0-0.4); EOSINOPHILS % (AUTO) 1 % (1-7); LYMPHOCYTES # (AUTO) 3.66 x10^3/uL (1-3.4); LYMPHOCYTES % (AUTO) 53 % (22-44); MD SCAN; MONOCYTES # (AUTO) 0.02 x10^3/uL (0.2-0.8); MONOCYTES % (AUTO) 0 % (2-9); NEUTROPHILS # (AUTO) 3.16 x10^3/uL (1.8-6.8); NEUTROPHILS % (AUTO) 46 % (42-75)
[2019-08-01 06:38] VITALS: BP 98/62
[2019-08-01] MEDS: METOPROLOL TARTRATE 25 MG TABLET PO SCH (07:47)
[2019-08-01] MEDS: HYDROCHLOROTHIAZIDE 25 MG TABLET PO SCH (07:47)
[2019-08-01] MEDS: SENNA/DOCUSATE TABLET PO SCH (07:59)
[2019-08-01] MEDS: FINASTERIDE 5 MG TABLET PO SCH ×2 (07:59→08:57)
[2019-08-01] MEDS: ASPIRIN 81 MG TABLET EC PO SCH (07:59)
[2019-08-01] MEDS: MEGESTROL ACETATE 400 MG/10 ML ML PO SCH (08:57)
[2019-08-01] MEDS: VANCOMYCIN 1,800 MG in SODIUM CHLORIDE 0.9% 250 ML IV SCH (08:57)
[2019-08-01 12:52] VITALS: BP 98/56
[2019-08-01] MEDS ORDERED: CALCIUM CARBONATE 500 MG TAB.CHEW PO PRN (15:00)
[2019-08-01] MEDS ORDERED: WARFARIN 5 MG TABLET PO-COUM ONE (18:00)
[2019-08-01 19:03] VITALS: BP 98/62
[2019-08-01] MEDS: LATANOPROST OPHTH 0.005%, 2.5ML EACHEYE SCH (19:16)
[2019-08-02] MEDS: PIPERACILLIN/TAZO/PMX 3.375GM 50 ML IV SCH ×4 (01:29→20:47)
[2019-08-02 02:07] VITALS: BP 98/61
[2019-08-02 03:18] LABS: INTERNATIONAL NORMALIZED RATIO 2.25 (0.93-1.1); PROTHROMBIN TIME 24.1 Seconds (9.6-11.5)
[2019-08-02 03:20] LABS: ANION GAP 10 mmol/L (5-15); CALCIUM 7.6 mg/dL (8.5-10.1); CHLORIDE 112 mmol/L (98-107); CREATININE 2.32 mg/dL (0.7-1.3)
[2019-08-02 03:29] LABS: MEAN CORPUSCULAR HEMOGLOBIN 33.2 pg (27.5-34.5); MEAN CORPUSCULAR HGB CONC 33.8 g/dL (33.2-36.2); MEAN CORPUSCULAR VOLUME 98.3 fL (81-97); MEAN PLATELET VOLUME 8.8 fL (7.4-10.4); RED BLOOD COUNT 3.19 x10^6/uL (4.38-5.82); RED CELL DISTRIBUTION WIDTH 14.6 % (9.4-14.8)
[2019-08-02 03:30] LABS: PLATELET COUNT 43 x10^3/uL (130-400)
[2019-08-02 03:31] LABS: MD YES
[2019-08-02 03:34] LABS: LYMPH#(MANUAL) 4.76 x10^3/uL (1-3.4); LYMPHS% (MANUAL) 58 % (22-44); MONOS#(MANUAL) 0.25 x10^3/uL (0.3-2.7); MONOS% (MANUAL) 3 % (2-9); SEGS% (MANUAL) 39 % (42-75)
[2019-08-02 03:35] LABS: <PLATELET ESTIMATE> DECREASED; <PLT MORPHOLOGY> NORMAL PLT MORPH; ANISOCYTOSIS 1+; OVALOCYTES 1+
[2019-08-02] MEDS: SODIUM CHLORIDE 0.9% 1,000 ML IV SCH (06:24)
[2019-08-02 07:09] VITALS: BP 96/64
[2019-08-02] MEDS: SENNA/DOCUSATE TABLET PO SCH (08:31)
[2019-08-02] MEDS: ASPIRIN 81 MG TABLET EC PO SCH (08:31)
[2019-08-02] MEDS: METOPROLOL TARTRATE 25 MG TABLET PO SCH (08:53)
[2019-08-02] MEDS: FINASTERIDE 5 MG TABLET PO SCH (08:54)
[2019-08-02] MEDS: D5%-0.9% NACL+KCL 20MEQ 1,000 ML IV SCH ×3 (08:54→23:05)
[2019-08-02] MEDS: MEGESTROL ACETATE 400 MG/10 ML ML PO SCH (08:56)
[2019-08-02] MEDS ORDERED: NALOXONE 1 MG/ML, 2ML ONE (10:35)
[2019-08-02] MEDS ORDERED: MIDAZOLAM 1 MG/ML, 5ML ONE (10:35)
[2019-08-02] MEDS ORDERED: FLUMAZENIL 0.1 MG/1 ML, 5ML ONE (10:35)
[2019-08-02] MEDS ORDERED: FENTANYL PF 100 MCG/2ML ONE (10:35)
[2019-08-02] MEDS ORDERED: LIDOCAINE 1%, 20ML ONE (10:52)
[2019-08-02 12:31] VITALS: BP 97/61
[2019-08-02] MEDS ORDERED: WARFARIN 3 MG TABLET PO-COUM ONE (17:35)
[2019-08-02] MEDS ORDERED: WARFARIN 2 MG TABLET PO-COUM ONE (17:35)
[2019-08-02] MEDS ORDERED: WARFARIN 5 MG TABLET PO-COUM ONE (18:00)
[2019-08-02] MEDS: ONDANSETRON ODT 4 MG PO PRN (18:13)
[2019-08-02 19:10] VITALS: BP 106/64
[2019-08-02] MEDS: LATANOPROST OPHTH 0.005%, 2.5ML EACHEYE SCH (20:47)
[2019-08-02] MEDS: VANCOMYCIN 1,800 MG in SODIUM CHLORIDE 0.9% 250 ML IV SCH (21:53)
[2019-08-03 02:00] VITALS: BP 124/72
[2019-08-03] MEDS: PIPERACILLIN/TAZO/PMX 3.375GM 50 ML IV SCH ×3 (02:36→11:51)
[2019-08-03 06:14] LABS: MEAN CORPUSCULAR HEMOGLOBIN 32.9 pg (27.5-34.5); MEAN CORPUSCULAR HGB CONC 33.5 g/dL (33.2-36.2); MEAN CORPUSCULAR VOLUME 98.4 fL (81-97); RED BLOOD COUNT 3.12 x10^6/uL (4.38-5.82); RED CELL DISTRIBUTION WIDTH 15.1 % (9.4-14.8)
[2019-08-03 06:15] LABS: ANION GAP 10 mmol/L (5-15); CALCIUM 7.3 mg/dL (8.5-10.1); CHLORIDE 114 mmol/L (98-107)
[2019-08-03 06:16] LABS: CREATININE 2.28 mg/dL (0.7-1.3)
[2019-08-03 06:33] LABS: MD YES; MEAN PLATELET VOLUME 8.5 fL (7.4-10.4); PLATELET COUNT 47 x10^3/uL (130-400)
[2019-08-03 06:59] LABS: EOS#(MANUAL) 0.08 x10^3/uL (0.0-0.4); EOS% (MANUAL) 1 % (1-7); LYMPH#(MANUAL) 4.57 x10^3/uL (1-3.4); LYMPHS% (MANUAL) 55 % (22-44); SEG#(MANUAL) 3.65 x10^3/uL (1.8-6.8); SEGS% (MANUAL) 44 % (42-75)
[2019-08-03 06:59] LABS: INTERNATIONAL NORMALIZED RATIO 2.99 (0.93-1.1); PROTHROMBIN TIME 32.1 Seconds (9.6-11.5)
[2019-08-03 07:00] LABS: <PLATELET ESTIMATE> DECREASED; <PLT MORPHOLOGY> NORMAL PLT MORPH; OVALOCYTES 1+; SMUDGE CELLS 2+; TEAR DROPS 1+
[2019-08-03] MEDS ORDERED: MEGE400O4 PO (07:33)
[2019-08-03] MEDS ORDERED: LEVO750T6 PO (07:33)
[2019-08-03] MEDS ORDERED: DOCU100C33 PO (07:33)
[2019-08-03 07:36] VITALS: BP 109/65
[2019-08-03] MEDS: FINASTERIDE 5 MG TABLET PO SCH (08:33)
[2019-08-03] MEDS: ASPIRIN 81 MG TABLET EC PO SCH (08:33)
[2019-08-03] MEDS: METOPROLOL TARTRATE 25 MG TABLET PO SCH ×2 (08:33→08:42)
[2019-08-03] MEDS: SENNA/DOCUSATE TABLET PO SCH (08:33)
[2019-08-03] MEDS: MEGESTROL ACETATE 400 MG/10 ML ML PO SCH (08:35)
[2019-08-03] MEDS: D5%-0.9% NACL+KCL 20MEQ 1,000 ML IV SCH (11:52)
[2019-08-03] MEDS ORDERED: WARFARIN 2.5 MG TABLET PO-COUM SCH (18:00)
== END 2019-08-03 13:05 | disposition home health service (06) | DRG 871 ==
LOC: ED 14:11 → 3N 15:58 → 4NW 19:35
PROVIDERS: ADMIT Internal Medicine; ATTEND Internal Medicine
PROC: 0W9G3ZZ Drainage of Peritoneal Cavity, Percutaneous Approach (ICD-10-PCS; principal; 2019-07-31)
PROC: 0W9G30Z Drainage of Peritoneal Cavity with Drainage Device, Percutaneous Approach (ICD-10-PCS; 2019-08-02)
DX: A41.9 Sepsis, unspecified organism (principal); J18.9 Pneumonia, unspecified organism; C25.9 Malignant neoplasm of pancreas, unspecified; G93.40 Encephalopathy, unspecified; E87.1 Hypo-osmolality and hyponatremia; C91.10 Chronic lymphocytic leukemia of B-cell type not having achieved remission; N17.9 Acute kidney failure, unspecified; R18.8 Other ascites; N18.9 Chronic kidney disease, unspecified; D64.9 Anemia, unspecified; D69.6 Thrombocytopenia, unspecified; E78.00 Pure hypercholesterolemia, unspecified; E78.5 Hyperlipidemia, unspecified; I12.9 Hypertensive chronic kidney disease with stage 1 through stage 4 chronic kidney disease, or unspecified chronic kidney disease; I25.10 Atherosclerotic heart disease of native coronary artery without angina pectoris; K59.00 Constipation, unspecified; N40.1 Benign prostatic hyperplasia with lower urinary tract symptoms; R13.10 Dysphagia, unspecified; R33.8 Other retention of urine; Z92.21 Personal history of antineoplastic chemotherapy; R73.9 Hyperglycemia, unspecified
CPT/HCPCS: 36415; 49083; 49418; 71045; 74021; 76705; 80048; 80053; 80202; 81001; 82042; 82140; 82150; 82945; 83605; 83615; 83735; 84100; 84145; 84443; 85025; 85610; 87040; 87070; 87075; 87086; 87102; 87116; 87205; 87206; 89051; 93005; 99156; 99157; 99285; G0378; J2250; J2543; J3010; J3370; Q0162; C1729; J2310; J2765; J3480; J7030; J7050